=== PATIENT | female | born 1990 | race Caucasian/White ===

== ENCOUNTER → 2018-02-18 | Outpatient (CLI) | payer OTHER ==
--- NOTE | 2018-02-18 08:55 | RAD ---
CT HEAD INDICATION: Headache COMPARISON: None Available. TECHNIQUE: 5 mm contiguous axial images were obtained from the skull base to the vertex. Exposure: One or more of the following individualized dose reduction techniques were utilized for this examination: 1. Automated exposure control 2. Adjustment of the mA and/or kV according to patient size 3. Use of iterative reconstruction technique FINDINGS: No abnormal attenuation within the brain parenchyma. No evidence of acute intracranial hemorrhage. No extra-axial fluid collections. No mass effect or midline shift. Ventricular size is appropriate. Basal cisterns are patent. No fractures identified.Gomez-white differentiation is preserved.Globes and orbits are within normal limits. Partially visualized small mucous retention cyst or polyp in the right maxillary sinus. IMPRESSION: No acute intracranial findings. Electronically signed by: Darren Navarro MD (02/18/2018 8:51 AM) [id number]
== END | disposition home or self-care (01) ==
LOC: CT 08:12
PROVIDERS: ATTEND Nurse Practitioner Adult Health
DX: G43.909 Migraine, unspecified, not intractable, without status migrainosus (principal)
CPT/HCPCS: 70450

== ENCOUNTER 2018-04-27 21:47 | Emergency (ER) | payer OTHER ==
[~2018-04-27] VITALS: Ht 170.2 cm; Wt 184.2 kg
[2018-04-27 22:05] VITALS: BP 149/101
[2018-04-27] MEDS ORDERED: IBUP200T44 PO (22:25)
[2018-04-27] MEDS ORDERED: AMOX500C PO (22:25)
[2018-04-27] MEDS ORDERED: CETI10TA22 PO (22:25)
--- NOTE | 2018-04-27 22:26 | ED.ADGEN ---
Past History Past Medical History Otitis media Past Surgical History: No Surgical History Smoking: Non-smoker Adult General Chief Complaint Chief Complaint Right ear pain HPI HPI Patient has a past history of ear infections. She noted right earache 3 days ago that has gotten progressively worse. She's been taking Motrin with some relief. She notes no fevers or drainage. She doesn't swim. She's never seen an ENT doctor. Review of Systems Review of Systems Constitutional: Denies fever or chills Eyes: Denies change in visual acuity, redness, or eye pain HENT: Denies nasal congestion or sore throat, with right ear pain Respiratory: Denies cough or shortness of breath Cardiovascular: No additional information not addressed in HPI GI: Denies abdominal pain, nausea, vomiting, bloody stools or diarrhea : Denies dysuria or hematuria Musculoskeletal: Denies back pain or joint pain Integument: Denies rash or skin lesions Neurologic: Denies headache, focal weakness or sensory changes Endocrine: Denies polyuria or polydipsia All other systems were reviewed and found to be within normal limits, except as documented in this note. Allergies Allergies Allergies Coded Allergies Type Severity Reaction Last Updated Verified No Known Drug Allergies 04/27/18 No Physical Exam Physical Exam Constitutional: Well developed, well nourished, no acute distress, non-toxic appearance. Morbidly obese HENT: Normocephalic, atraumatic, bilateral external ears normal, oropharynx moist, no oral exudates, nose normal. Right ear with erythema, bulging and loss of normal landmarks Eyes: PERRLA, EOMI, conjunctiva normal, no discharge. Neck: Normal range of motion, no tenderness, supple, no stridor. Cardiovascular:Heart rate regular rhythm, no murmur Lungs & Thorax: Bilateral breath sounds clear to auscultation Abdomen: Bowel sounds normal, soft, no tenderness, no masses, no pulsatile masses. Skin: Warm, dry, no erythema, no rash. Back: No tenderness, no CVA tenderness. Extremities: No tenderness, no cyanosis, no clubbing, ROM intact, no edema. Neurologic: Alert and oriented X 3, normal motor function, normal sensory function, no focal deficits noted. Psychologic: Affect normal, judgement normal, mood normal. Current Patient Data Vital Signs Vital Signs Date Time Temp Pulse Resp B/P (MAP) Pulse Ox O2 Delivery O2 Flow Rate FiO2 8/28/18 22:05 97.9 87 16 98 Room Air EKG EKG [] Radiology/Procedures Radiology/Procedures [] Course & Med Decision Making Course & Med Decision Making Emergency Department Course Patent presents with right ear pain DDx- Right OM, R otitis externa, pharyngitis The patient was stable in the ED. Right ear exam notes ROM. Patient will be given prescriptions for Amoxicillin, Motrin and Zyrtec with ENT follow-up. Final Impression Final Impression Clinical Impression Right Otitis Media Dragon Disclaimer Dragon Disclaimer This electronic medical record was generated, in whole or in part, using a voice recognition dictation system. Departure Departure: Impression: Primary Impression: Right otitis media with effusion Disposition: HOME, SELF-CARE Condition: STABLE Referrals: CHELI COLON MD Follow-up tomorrow for further evaluation Patient Instructions: Otitis Media, Adult, [id number] Additional Instructions: If he develop worse pain, drainage, fevers, vomiting return to the emergency department immediately Scripts Cetirizine Hcl (ZYRTEC) 10 Mg Tablet 1 TAB PO DAILY, #20 TAB 0 Refills Prov: KARRIE AUSTIN MD 04/27/18 Ibuprofen (MOTRIN IB) 200 Mg Tablet 600 MG PO TIDWMEALHC for 3 Days, #27 MG Prov: KARRIE AUSTIN MD 04/27/18 Amoxicillin (AMOXICILLIN) 500 Mg Capsule 1 CAP PO TID, #30 CAP Prov: KARRIE AUSTIN MD 04/27/18 KARRIE AUSTIN MD Apr 27, 2018 22:26
== END 2018-04-27 22:45 | disposition home or self-care (01) ==
LOC: ER 21:47
DX: H65.91 Unspecified nonsuppurative otitis media, right ear (principal)
CPT/HCPCS: 99283

== ENCOUNTER 2018-05-20 19:19 | Emergency (ER) | payer OTHER ==
[~2018-05-20] VITALS: Ht 170.2 cm; Wt 182.3 kg
[~2018-05-20 19:19] MED LIST: AMOX500C PO; CETI10TA22 PO; IBUP200T44 PO
[2018-05-20 19:24] VITALS: BP 154/92
--- NOTE | 2018-05-21 02:45 | ED.ADGEN ---
Past History Past Medical History: Anxiety, Bipolar Past Surgical History: Smoking: Non-smoker Alcohol Use: None Drug Use: None Adult General Chief Complaint Chief Complaint Left ear fullness HPI HPI Patient is a 28-year-old female presents with nasal congestion rhinorrhea, bilateral ear pain with left ear fullness. No fever, loss of hearing, or tenderness. No other acute symptoms or complaints[] Review of Systems Review of Systems Review symptoms as per history of present illness. All other review symptoms are negative All other systems were reviewed and found to be within normal limits, except as documented in this note. Allergies Allergies Allergies Coded Allergies Type Severity Reaction Last Updated Verified No Known Drug Allergies 04/27/18 No Physical Exam Physical Exam Constitutional: Well developed, well nourished, no acute distress, non-toxic appearance. [] HENT: Normocephalic, atraumatic, bilateral external ears normal, L TM bulging with mild erythema, no air-fluid levels, blisters, perforation, nose normal. [] Eyes: PERRLA, EOMI, conjunctiva normal. [] Neck: Normal range of motion. [] Cardiovascular:Heart rate regular rhythm, no murmur [] Lungs & Thorax: Bilateral breath sounds clear to auscultation [] Abdomen: Bowel sounds normal, soft, no tenderness, no masses, no pulsatile masses. [] Skin: Warm, dry, no erythema, no rash. [] Back: No tenderness, no CVA tenderness. [] Extremities: No tenderness, no cyanosis, no clubbing, ROM intact, no edema. [] Neurologic: Alert and oriented X 3, normal motor function, normal sensory function, no focal deficits noted. [] Psychologic: Affect normal, judgement normal, mood normal. [] Current Patient Data Vital Signs Vital Signs Date Time Temp Pulse Resp B/P (MAP) Pulse Ox O2 Delivery O2 Flow Rate FiO2 05/20/18 19:24 97.8 102 18 98 Room Air EKG EKG [] Radiology/Procedures Radiology/Procedures [] Course & Med Decision Making Course & Med Decision Making Pertinent Labs and Imaging studies reviewed. (See chart for details) [] Final Impression Final Impression [1. Left otalgia] Dragon Disclaimer Dragon Disclaimer This electronic medical record was generated, in whole or in part, using a voice recognition dictation system. LAURA ANNE DO May 21, 2018 02:45
== END 2018-05-20 19:42 | disposition home or self-care (01) ==
LOC: ER 19:19
DX: H92.03 Otalgia, bilateral (principal); R09.81 Nasal congestion
CPT/HCPCS: 99281

== ENCOUNTER → 2018-05-24 | Outpatient (CLI) | payer OTHER ==
[2018-05-20 19:24] VITALS: BP 154/92
--- NOTE | 2018-05-24 16:42 | RAD ---
Early OB ultrasound History: Pelvic pain and bleeding. No correlative beta hCG levels available at time of dictation. Comparison: None. Technique: Transabdominal imaging was performed for initial evaluation of the pelvis. Endovaginal imaging was performed to evaluate optimally the lower uterine segment and to increase sensitivity for detection of intrauterine . Findings: Transabdominal imaging: Uterus measures 10.1 cm in length. Endometrial thickness is 6 mm. No definite intrauterine is identified. Ovaries are not well seen. Endovaginal imaging: Uterus measures 9.8 cm in length. Endometrial thickness is 11 mm. No intrauterine is identified. Ovaries are not visualized. No convincing adnexal masses are seen. Impression: 1. No intrauterine is identified. No adnexal masses are seen. 2. Evaluation is limited secondary to lack of correlative beta hCG levels at time of dictation. Assuming positive test, most likely etiology is exceedingly early intrauterine . Although there is no positive ultrasound evidence of such, ectopic cannot be excluded. Recommend serial beta hCG levels and pelvic ultrasound as clinically indicated. Electronically signed by: Faustino Desouza MD (05/24/2018 4:39 PM) [place] [id number]
== END | disposition home or self-care (01) ==
LOC: US 15:41
PROVIDERS: ATTEND Physician Assistant
DX: Z32.02 Encounter for pregnancy test, result negative (principal); R58 Hemorrhage, not elsewhere classified; G43.909 Migraine, unspecified, not intractable, without status migrainosus
CPT/HCPCS: 76801; 76817

== ENCOUNTER 2018-10-04 10:46 | Emergency (ER) | payer OTHER ==
[~2018-10-04] VITALS: Ht 170.2 cm; Wt 191.0 kg
[2018-10-04] MEDS ORDERED: IV NORMAL SALINE 1,000ML 1,000 ML IV ONE (11:30)
--- NOTE | 2018-10-04 11:30 | PHYS DOC ---
Past History Past Medical History: No Pertinent History Past Surgical History: Smoking: Non-smoker Alcohol Use: None Drug Use: None Adult General Chief Complaint Chief Complaint: VAGINAL BLEEDING HPI HPI 28-year-old female presents with vaginal bleeding for the last few days. The patient believes that she is about 7-8 weeks . She is with 2 previous spontaneous abortions. Her last miscarriage was in May 2018. The patient has had heavier spotting which she defines as up to 1 menstral pad per hour for the last 3 days. She states the bleeding has slowed today compared to yesterday. [facility] and they recommended she come to the ED as they were unable to get her into an OB today. She denies fever or chills. She denies dysuria or urinary frequency. She has not been feeling ill. Review of Systems Review of Systems Constitutional: Denies fever or chills [] Eyes: Denies change in visual acuity, redness, or eye pain [] HENT: Denies nasal congestion or sore throat [] Respiratory: Denies cough or shortness of breath [] Cardiovascular: No additional information not addressed in HPI [] GI: Denies abdominal pain, nausea, vomiting, bloody stools or diarrhea [] : vaginal bleeding [] Musculoskeletal: Denies back pain or joint pain [] Integument: Denies rash or skin lesions [] Neurologic: Denies headache, focal weakness or sensory changes [] Endocrine: Denies polyuria or polydipsia [] All other systems were reviewed and found to be within normal limits, except as documented in this note. Current Medications Current Medications Current Medications Medications (Trade) Dose Ordered Sig/Paulina Start Time Stop Time Status Last Admin Dose Admin Sodium Chloride 1,000 ml @ 1,000 mls/hr 1X ONCE 10/04/18 11:30 10/04/18 12:29 Allergies Allergies Allergies Coded Allergies Type Severity Reaction Last Updated Verified No Known Drug Allergies 04/27/18 No Physical Exam Physical Exam Constitutional: Well developed, morbidly obese, well nourished, no acute distress, non-toxic appearance. [] HENT: Normocephalic, atraumatic, bilateral external ears normal, oropharynx moist, no oral exudates, nose normal. [] Eyes: PERRLA, EOMI, conjunctiva normal, no discharge. [] Neck: Normal range of motion, no tenderness, supple, no stridor. [] Cardiovascular:Heart rate regular rhythm, no murmur [] Lungs & Thorax: Bilateral breath sounds clear to auscultation [] Abdomen: Bowel sounds normal, soft, no tenderness, no masses, no pulsatile masses. [] Skin: Warm, dry, no erythema, no rash. [] Back: No tenderness, no CVA tenderness. [] Extremities: No tenderness, no cyanosis, no clubbing, ROM intact, no edema. [] Neurologic: Alert and oriented X 3, normal motor function, normal sensory function, no focal deficits noted. [] Psychologic: Affect normal, judgement normal, mood normal. [] Current Patient Data Vital Signs Vital Signs Date Time Temp Pulse Resp B/P (MAP) Pulse Ox O2 Delivery O2 Flow Rate FiO2 10/04/18 11:08 99.0 88 18 98 Room Air EKG EKG [] Radiology/Procedures Radiology/Procedures [] Impressions: Indication: Vaginal bleeding in TECHNIQUE: Ultrasound OB greater than 14 weeks. COMPARISON: 05/24/2018 FINDINGS:the uterus is anteverted and measures 11.0 x 6.3 x 6.3 cm (longitudinal, AP, transverse). Cervix within normal limits. Single intrauterine gestation sac is seen with estimated gestation age of 6 weeks 1 day. Yolk sac is seen. 1.2 x 0.5 x 1.7 cm subchorionic bleed. No pole seen. No free pelvic fluid. Bilateral ovaries are not visualized due to overlying bowel gas. IMPRESSION: IMPRESSION: 1. Single intrauterine gestation sac corresponding to gestation age of 6 weeks 1 day without visualization of pole. This may be secondary to early . Follow-up ultrasound and correlation with beta CT recommended. 2. Small subchorionic bleed as described above. Electronically signed by: Jaswant Heredia DO (10/04/2018 12:36 PM) [id number] DICTATED AND SIGNED BY: JASWANT HEREDIA DO DATE: 10/04/18 1232 CC: LAURA GARCIA DO; PCP,NO Course & Med Decision Making Course & Med Decision Making Pertinent Labs and Imaging studies reviewed. (See chart for details) Patient's labs are unremarkable. Her urinalysis is negative for infection. Ultrasound shows 1 intrauterine gestational sac. No pole can be visualized this time. Her beta hCG is 9291. There was also a small subchorionic hemorrhage. I advised patient to follow-up in 48 hours for repeat beta hCG. She is stable for discharge at this time. [] Dragon Disclaimer Dragon Disclaimer This electronic medical record was generated, in whole or in part, using a voice recognition dictation system. Departure Departure: Impression: Primary Impression: Vaginal bleeding before 22 weeks gestation Additional Impressions: Subchorionic bleed Disposition: HOME, SELF-CARE Condition: STABLE Referrals: PCP,NO (PCP) Patient Instructions: Vaginal Bleeding During , First Trimester Problem Qualifiers Additional Impressions: Subchorionic bleed Fetus number: single or unspecified fetus Trimester: first trimester Qualified Codes: O41.8X10 - Other specified disorders of amniotic fluid and membranes, first trimester, not applicable or unspecified; O46.8X1 - Other antepartum hemorrhage, first trimester Weeks of gestation: less than 8 weeks Qualified Codes: Z3A.01 - Less than 8 weeks gestation of LAURA GARCIA DO Oct 04, 2018 11:30
[2018-10-04 12:06] LABS: BASO # 0.1 x10^3/uL (0.0-0.2); BASO % 1 % (0-3); EOS # 0.2 x10^3/uL (0.0-0.7); EOS % 2 % (0-3); HEMATOCRIT 36.8 % (36.0-47.0); HEMOGLOBIN 12.1 g/dL (12.0-15.5); LYMPH # 2.1 x10^3/uL (1.0-4.8); LYMPH % 22 % (24-48); MEAN CORPUSCULAR HEMOGLOBIN 26 pg (25-35); MEAN CORPUSCULAR HGB CONC 33 g/dL (31-37); MEAN CORPUSCULAR VOLUME 79 fL (79-100); MONO # 0.5 x10^3/uL (0.0-1.1); MONO % 6 % (0-9); NEUT # 6.7 x10^3uL (1.8-7.7); NEUT % 70 % (31-73); PLATELET COUNT 234 x10^3/uL (140-400); RED BLOOD COUNT 4.64 x10^6/uL (3.50-5.40); RED CELL DISTRIBUTION WIDTH 16.8 % (11.5-14.5); WHITE BLOOD COUNT 9.5 x10^3/uL (4.0-11.0)
[2018-10-04 12:20] LABS: ALBUMIN/GLOBULIN RATIO 0.7 (1.0-1.7); CALCIUM 8.9 mg/dL (8.5-10.1); CREATININE 0.7 mg/dL (0.6-1.0); GFR 101.1; TOTAL BILIRUBIN 0.3 mg/dL (0.2-1.0); TOTAL PROTEIN 7.2 g/dL (6.4-8.2)
[2018-10-04 12:32] LABS: BACTERIA,URINE FEW /HPF (0-FEW); BILIRUBIN,URINE NEG (NEG); CLARITY,URINE HAZY; COLOR,URINE YELLOW; GLUCOSE,URINE NEG (NEG); NITRITE,URINE NEG (NEG); RBC,URINE 0 /HPF (0-2); SQUAMOUS EPITHELIAL CELL,UR MOD /LPF; UROBILINOGEN,URINE 0.2 mg/dL (0.2 mg/dL); WBC,URINE OCC /HPF (0-4)
--- NOTE | 2018-10-04 12:41 | RAD ---
Indication: Vaginal bleeding in TECHNIQUE: Ultrasound OB greater than 14 weeks. COMPARISON: 05/24/2018 FINDINGS:the uterus is anteverted and measures 11.0 x 6.3 x 6.3 cm (longitudinal, AP, transverse). Cervix within normal limits. Single intrauterine gestation sac is seen with estimated gestation age of 6 weeks 1 day. Yolk sac is seen. 1.2 x 0.5 x 1.7 cm subchorionic bleed. No pole seen. No free pelvic fluid. Bilateral ovaries are not visualized due to overlying bowel gas. IMPRESSION: IMPRESSION: 1. Single intrauterine gestation sac corresponding to gestation age of 6 weeks 1 day without visualization of pole. This may be secondary to early . Follow-up ultrasound and correlation with beta CT recommended. 2. Small subchorionic bleed as described above. Electronically signed by: Jaswant Preston DO (10/04/2018 12:36 PM) [id number]
[2018-10-04 15:28] VITALS: BP 160/97
== END 2018-10-04 13:20 | disposition home or self-care (01) ==
LOC: ER 10:46
DX: O46.91 Antepartum hemorrhage, unspecified, first trimester (principal); O41.8X10 Other specified disorders of amniotic fluid and membranes, first trimester, not applicable or unspecified; O46.8X1 Other antepartum hemorrhage, first trimester; Z3A.01 Less than 8 weeks gestation of pregnancy
CPT/HCPCS: 36415; 76805; 76817; 80053; 81001; 84702; 85025; 99284-25; J7030

== ENCOUNTER 2019-08-23 15:20 | Emergency (ER) | payer OTHER ==
[2019-08-23] MEDS ORDERED: IV NORMAL SALINE 1,000ML 1,000 ML IV SCH (15:32)
--- NOTE | 2019-08-23 15:37 | PHYS DOC ---
Past History Past Medical History: No Pertinent History Past Surgical History: Smoking: Non-smoker Alcohol Use: None Drug Use: None Adult General Chief Complaint Chief Complaint: FLANK PAIN HPI HPI Patient is a 29-year-old female presents with left flank pain since approximately 6:00 this morning. It waxes and wanes. No significant relief with muscle relaxers or prescription strength ibuprofen. No dysuria or hematuria. No change with movement. No previous history of this kind of discomfort. Some nausea without vomiting. No difficulty breathing. No diarrhea. Pain is moderate to severe when it comes on. Mild in between the sharp exacerbations. No worsening of the discomfort during the car ride here.[] Review of Systems Review of Systems Constitutional: Denies fever or chills [] Eyes: Denies change in visual acuity, redness, or eye pain [] HENT: Denies nasal congestion or sore throat [] Respiratory: Denies cough or shortness of breath [] Cardiovascular: No chest pain or palpitations[] GI: See history of present illness[] : Denies dysuria or hematuria, see history of present illness [] Musculoskeletal: Denies back pain or joint pain [] Integument: Denies rash or skin lesions [] Neurologic: Denies headache, focal weakness or sensory changes [] Endocrine: Denies polyuria or polydipsia [] All other systems were reviewed and found to be within normal limits, except as documented in this note. Allergies Allergies Allergies Coded Allergies Type Severity Reaction Last Updated Verified No Known Drug Allergies 04/27/18 No Physical Exam Physical Exam Constitutional: Well developed, well nourished, no acute distress, non-toxic appearance. [] HENT: Normocephalic, atraumatic, bilateral external ears normal, oropharynx moist, no oral exudates, nose normal. [] Eyes: PERRLA, EOMI, conjunctiva normal, no discharge. [] Neck: Normal range of motion, no tenderness, supple, no stridor. [] Cardiovascular:Heart rate regular rhythm, no murmur [] Lungs & Thorax: Bilateral breath sounds clear to auscultation [] Abdomen: Bowel sounds normal, soft, no tenderness, no masses, no pulsatile masses. [] Skin: Warm, dry, no erythema, no rash. [] Back: No tenderness, mild left-sided CVA tenderness. No midline tenderness.. [] Extremities: No tenderness, no cyanosis, no clubbing, ROM intact, no edema. [] Neurologic: Alert and oriented X 3, normal motor function, normal sensory f unction, no focal deficits noted. [] Psychologic: Affect normal, judgement normal, mood normal. [] Current Patient Data Lab Results Laboratory Tests Test 08/23/19 15:47 08/23/19 16:11 White Blood Count 9.4 x10^3/uL Red Blood Count 4.70 x10^6/uL Hemoglobin 11.5 g/dL Hematocrit 36.3 % Mean Corpuscular Volume 77 fL Mean Corpuscular Hemoglobin 25 pg Mean Corpuscular Hemoglobin Concent 32 g/dL Red Cell Distribution Width 17.5 % Platelet Count 266 x10^3/uL Neutrophils (%) (Auto) 62 % Lymphocytes (%) (Auto) 28 % Monocytes (%) (Auto) 5 % Eosinophils (%) (Auto) 4 % Basophils (%) (Auto) 1 % Neutrophils # (Auto) 5.9 x10^3uL Lymphocytes # (Auto) 2.6 x10^3/uL Monocytes # (Auto) 0.5 x10^3/uL Eosinophils # (Auto) 0.4 x10^3/uL Basophils # (Auto) 0.1 x10^3/uL Sodium Level 140 mmol/L Potassium Level 4.1 mmol/L Chloride Level 107 mmol/L Carbon Dioxide Level 26 mmol/L Anion Gap 7 Blood Urea Nitrogen 14 mg/dL Creatinine 0.8 mg/dL Estimated GFR (Cockcroft-Gault) 86.0 BUN/Creatinine Ratio 18 Glucose Level 108 mg/dL Calcium Level 8.7 mg/dL Total Bilirubin 0.2 mg/dL Aspartate Amino Transf (AST/SGOT) 13 U/L Alanine Aminotransferase (ALT/SGPT) 24 U/L Alkaline Phosphatase 98 U/L Total Protein 6.8 g/dL Albumin 3.1 g/dL Albumin/Globulin Ratio 0.8 Lipase 77 U/L Serum Test, Qualitative Negative Urine Collection Type Unknown Urine Color Yellow Urine Clarity Hazy Urine pH 5.5 Urine Specific [place] >=1.030 Urine Protein Neg Urine Glucose (UA) Neg mg/dL Urine Ketones (Stick) Neg mg/dL Urine Blood Neg Urine Nitrite Neg Urine Bilirubin Neg Urine Urobilinogen Dipstick 0.2 mg/dL Urine Leukocyte Esterase Neg Urine RBC 0 /HPF Urine WBC Rare /HPF Urine Squamous Epithelial Cells Many /LPF Urine Bacteria Mod /HPF Current Medications Medications (Trade) Dose Ordered Sig/Paulina Route PRN Reason Start Time Stop Time Status Last Admin Dose Admin Morphine Sulfate (Morphine 2mg Syringe) 2 mg PRN Q15MIN PRN IV/SQ PAIN GREATER THAN 3/10 08/23/19 15:45 08/24/19 15:44 08/23/19 15:58 Sodium Chloride 1,000 ml @ 1,000 mls/hr Q1H IV 08/23/19 15:32 08/23/19 16:31 DC 08/23/19 15:32 Ondansetron HCl (Zofran) 4 mg 1X ONCE IVP 08/23/19 15:45 08/23/19 15:49 DC 08/23/19 15:45 Ketorolac Tromethamine (Toradol 30mg Vial) 30 mg 1X ONCE IVP 08/23/19 15:45 08/23/19 15:49 DC 08/23/19 15:45 EKG EKG [] Radiology/Procedures Radiology/Procedures PROCEDURE: CT ABDOMEN PELVIS WO CONTRAST Examination: CT ABDOMEN PELVIS WO CONTRAST History: Left flank pain, nausea Comparison/Correlation: None Findings: Axial images of the abdomen and pelvis were obtained without contrast. Sagittal and coronal reformatted images were provided. Hepatomegaly is present with liver length of 26 cm. No biliary dilatation. Gallbladder is unremarkable. Splenomegaly is present with longitudinal length of 16.1 cm. Pancreas, adrenal glands, and kidneys are unremarkable. Uterus is unremarkable. No enlarged abdominal or pelvic lymph nodes. Diverticulosis of the colon is present. No inflammatory change about the cecum. Bony structures are unremarkable for the patient's age. Impression: Hepatosplenomegaly. Diverticulosis.[] Course & Med Decision Making Course & Med Decision Making Pertinent Labs and Imaging studies reviewed. (See chart for details) ED course: Patient arrived, was placed in bed, and tolerated exam well. IV access was established and she was given pain medicines. She was transferred to and from radiology with any complications. After return of laboratory and i maging findings, these were discussed with the patient who voiced understanding. All questions were answered. She was discharged in improved condition. Medical decision making: There is no evidence of obstruction, perforation, pyelonephritis, kidney stone, nor other acute surgical process. There are diverticuli present, no evidence of diverticulitis. No evidence of intractable pain.[] Dragon Disclaimer Dragon Disclaimer This electronic medical record was generated, in whole or in part, using a voice recognition dictation system. Departure Departure: Impression: Primary Impression: Acute left flank pain Disposition: HOME, SELF-CARE Condition: IMPROVED Referrals: PCPRITCHIE (PCP) Patient Instructions: Flank Pain Additional Instructions: Drink plenty of fluids. Follow-up with your regular doctor in 2 days. If you do not have regular doctor list of local clinics will be provided for you. Return to the ER if unable to tolerate liquids, blood in stool, emesis, or urine, or any other concerns. Scripts Tramadol Hcl (TRAMADOL HCL) 50 Mg Tablet 50 MG PO PRN Q6HRS PRN for PAIN, #20 TAB Prov: PARAM CALLAHAN DO 08/23/19 Metoclopramide Hcl (REGLAN) 10 Mg Tablet 10 MG PO QID for nausea and vomiting, #30 TAB Prov: PARAM CALLAHAN DO 08/23/19 Orphenadrine Citrate (ORPHENADRINE CITRATE) 100 Mg Tablet.er 100 MG PO BID for BACK PAIN, #20 TAB.SR Prov: PARAM CALLAHAN DO 08/23/19 Meloxicam (MELOXICAM) 7.5 Mg Tablet 7.5 MG PO DAILY for PAIN, #20 TAB Prov: PARAM CALLAHAN DO 08/23/19 PARAM CALLAHAN DO Aug 23, 2019 15:37
[2019-08-23] MEDS ORDERED: KETOROLAC 30 MG/ML VIAL. IVP ONE (15:45)
[2019-08-23] MEDS ORDERED: MORPHINE SULFATE 2 MG/ML DISP.SYRIN. IV/SQ PRN (15:45)
[2019-08-23] MEDS ORDERED: ONDANSETRON PF 4 MG/2 ML VIAL. IVP ONE (15:45)
[2019-08-23 16:07] LABS: BASO # 0.1 x10^3/uL (0.0-0.2); BASO % 1 % (0-3); EOS # 0.4 x10^3/uL (0.0-0.7); EOS % 4 % (0-3); HEMATOCRIT 36.3 % (36.0-47.0); HEMOGLOBIN 11.5 g/dL (12.0-15.5); LYMPH # 2.6 x10^3/uL (1.0-4.8); LYMPH % 28 % (24-48); MEAN CORPUSCULAR HEMOGLOBIN 25 pg (25-35); MEAN CORPUSCULAR HGB CONC 32 g/dL (31-37); MEAN CORPUSCULAR VOLUME 77 fL (79-100); MONO # 0.5 x10^3/uL (0.0-1.1); MONO % 5 % (0-9); NEUT # 5.9 x10^3uL (1.8-7.7); NEUT % 62 % (31-73); PLATELET COUNT 266 x10^3/uL (140-400); RED CELL DISTRIBUTION WIDTH 17.5 % (11.5-14.5); WHITE BLOOD COUNT 9.4 x10^3/uL (4.0-11.0)
[2019-08-23 16:08] LABS: CALCIUM 8.7 mg/dL (8.5-10.1); CREATININE 0.8 mg/dL (0.6-1.0); POTASSIUM 4.1 mmol/L (3.5-5.1)
[2019-08-23 16:14] LABS: ALBUMIN 3.1 g/dL (3.4-5.0); ALBUMIN/GLOBULIN RATIO 0.8 (1.0-1.7); TOTAL BILIRUBIN 0.2 mg/dL (0.2-1.0); TOTAL PROTEIN 6.8 g/dL (6.4-8.2)
[2019-08-23 16:30] LABS: PREG TEST PT QUAL NEGATIVE (NEG)
--- NOTE | 2019-08-23 16:55 | RAD ---
Examination: CT ABDOMEN PELVIS WO CONTRAST History: Left flank pain, nausea Comparison/Correlation: None Findings: Axial images of the abdomen and pelvis were obtained without contrast. Sagittal and coronal reformatted images were provided. Hepatomegaly is present with liver length of 26 cm. No biliary dilatation. Gallbladder is unremarkable. Splenomegaly is present with longitudinal length of 16.1 cm. Pancreas, adrenal glands, and kidneys are unremarkable. Uterus is unremarkable. No enlarged abdominal or pelvic lymph nodes. Diverticulosis of the colon is present. No inflammatory change about the cecum. Bony structures are unremarkable for the patient's age. Impression: Hepatosplenomegaly. Diverticulosis. PQRS Compliance Statement: One or more of the following individualized dose reduction techniques were utilized for this examination: 1. Automated exposure control 2. Adjustment of the mA and/or kV according to patient size 3. Use of iterative reconstruction technique Electronically signed by: Brant Proctor MD (08/23/2019 4:52 PM) [facility]
[2019-08-23 16:56] VITALS: BP 142/68
[2019-08-23 17:07] LABS: BACTERIA,URINE MOD /HPF (0-FEW); BILIRUBIN,URINE NEG (NEG); CLARITY,URINE HAZY; COLOR,URINE YELLOW; GLUCOSE,URINE NEG (NEG); NITRITE,URINE NEG (NEG); RBC,URINE 0 /HPF (0-2); SQUAMOUS EPITHELIAL CELL,UR MANY /LPF; UROBILINOGEN,URINE 0.2 mg/dL (0.2 mg/dL); WBC,URINE RARE /HPF (0-4)
[2019-08-23] MEDS ORDERED: ORPH-16 PO (17:16)
[2019-08-23] MEDS ORDERED: TRAM50TA PO (17:16)
[2019-08-23] MEDS ORDERED: MELO7.5T29 PO (17:16)
[2019-08-23] MEDS ORDERED: METO10TA81 PO (17:16)
== END 2019-08-23 17:30 | disposition home or self-care (01) ==
LOC: ER 15:20
DX: R10.9 Unspecified abdominal pain (principal); R16.2 Hepatomegaly with splenomegaly, not elsewhere classified; K57.30 Diverticulosis of large intestine without perforation or abscess without bleeding; Z98.890 Other specified postprocedural states
CPT/HCPCS: 36415; 74176; 80053; 81001; 83690; 84703; 85025; 87086; 96374; 96375; 99285; J1885; J2270; J2405; J7030

== ENCOUNTER 2019-11-15 22:00 | Emergency (ER) | payer OTHER ==
[~2019-11-15] VITALS: Ht 170.2 cm; Wt 200.0 kg
[~2019-11-15 22:00] MED LIST changes: -CETI10TA22 PO; +CETI10TA24 PO; +MELO7.5T29 PO; +METO10TA81 PO; +ORPH-16 PO; +TRAM50TA PO
[2019-11-15 22:07] VITALS: BP 152/97
--- NOTE | 2019-11-15 22:26 | PHYS DOC ---
Past History Past Medical History: Anxiety, Bipolar, Depression Past Surgical History: Smoking: Non-smoker Alcohol Use: None Drug Use: None Adult General Chief Complaint Chief Complaint: FOREIGNBODY EAR'''... I got a q tip stuck in my Lt. ear....".. " I tell my kids not to do what I did...." HPI HPI Patient is a 29 year old female who presents with above hx and complaints of Q- tip stuck in Lt. ear. Patient's states he is currently now causing her considerable pain. Patient denies any significant hearing loss. Patient normally healthy. Review of Systems Review of Systems Constitutional: Denies fever or chills [] Eyes: Denies change in visual acuity, redness, or eye pain [] HENT: Denies nasal congestion or sore throat [. Patient]complains of left ear pain and loss of Q-tip Respiratory: Denies cough or shortness of breath [] Cardiovascular: No additional information not addressed in HPI [] GI: Denies abdominal pain, nausea, vomiting, bloody stools or diarrhea [] : Denies dysuria or hematuria [] Musculoskeletal: Denies back pain or joint pain [] Integument: Denies rash or skin lesions [] Neurologic: Denies headache, focal weakness or sensory changes [] Endocrine: Denies polyuria or polydipsia [] All other systems were reviewed and found to be within normal limits, except as documented in this note. Family History Family History Noncontributory to presentation Current Medications Current Medications See nursing for home medications Allergies Allergies Allergies Coded Allergies Type Severity Reaction Last Updated Verified No Known Drug Allergies 04/27/18 No Physical Exam Physical Exam Constitutional: Well developed, well nourished, no acute distress, non-toxic appearance. [] HENT: Normocephalic, atraumatic, oropharynx moist, no oral exudates, nose normal. []Cotton tip stuck up against TM and excoriated canal on Lt. Eyes: PERRLA, EOMI, conjunctiva normal, no discharge. [] Neck: Normal range of motion, no tenderness, supple, no stridor. [] Cardiovascular:Heart rate regular rhythm, no murmur [] Lungs & Thorax: Bilateral breath sounds clear to auscultation [] Abdomen: Bowel sounds normal, soft, no tenderness, no masses, no pulsatile masses. Obese. Scar. Skin: Warm, dry, no erythema, no rash. [] Back: No tenderness, no CVA tenderness. [] Extremities: No tenderness, no cyanosis, no clubbing, ROM intact, no edema. [] Neurologic: Alert and oriented X 3, normal motor function, normal sensory function, no focal deficits noted. [] Psychologic: Affect anxious, judgement normal, mood normal. [] EKG EKG [] Radiology/Procedures Radiology/Procedures [] Course & Med Decision Making Course & Med Decision Making Pertinent Labs and Imaging studies reviewed. (See chart for details) Procedure note- with use of ear final and forceps was able to remove cotton tip. Patient to use Debrox to cleaning ears. Patient avoid using Q-tips. Patient follow-up primary care. Return if any concerns. Impression: 1. Foreign body left ear canal [] Dragon Disclaimer Dragon Disclaimer This electronic medical record was generated, in whole or in part, using a voice recognition dictation system. Departure Departure: Disposition: 01 HOME/RESIDENCE PRIOR TO ADM Condition: STABLE Referrals: PCP,UNKNOWN (PCP) Dragon Disclaimer This chart was dictated in whole or in part using Voice Recognition software in a busy, high-work load, and often noisy Emergency Department environment. It may contain unintended and wholly unrecognized errors or omissions. NEYMAR MCKEON MD Nov 15, 2019 22:26
== END 2019-11-15 23:28 | disposition home or self-care (01) ==
LOC: ER 22:00
DX: T16.2XXA Foreign body in left ear, initial encounter (principal); X58.XXXA Exposure to other specified factors, initial encounter; Y93.89 Activity, other specified; Y92.89 Other specified places as the place of occurrence of the external cause; Y99.8 Other external cause status
CPT/HCPCS: 69200; 99284

== ENCOUNTER 2020-01-23 13:41 | Emergency (ER) | payer OTHER ==
[~2020-01-23] VITALS: Ht 170.2 cm; Wt 200.0 kg
[2020-01-23] MEDS ORDERED: IV NORMAL SALINE 1,000ML 1,000 ML IV ONE (14:00)
--- NOTE | 2020-01-23 14:12 | PHYS DOC ---
Past History Past Medical History: Anxiety, Bipolar, Depression Past Surgical History: Smoking: Non-smoker Alcohol Use: None Drug Use: None General Adult EDM: Chief Complaint: VAGINAL BLEEDING HPI: HPI: 29-year-old female presents with 16-day history of increased and prolonged vaginal bleeding. Reports is currently passing "large clots ". Patient denies prior history of similar bleeding. Denies use of blood thinners. Denies dizziness or lightheadedness. Patient reports today now with some lower pelvic abdominal cramping pain. Denies . Denies fever or chills. Reports called her PCP who instructed patient to present to the ER for further evaluation. Review of Systems: Review of Systems: Constitutional: Denies fever or chills Eyes: Denies redness or eye pain HENT: Denies nasal congestion or sore throat Respiratory: Denies cough or shortness of breath Cardiovascular: Denies chest pain or palpitations GI: Denies abdominal pain, nausea, or vomiting /MACHINERY CLEANER: Denies dysuria or hematuria; reports pelvic pain and abnormal vaginal bleeding Musculoskeletal: Denies back pain or joint pain Integument: Denies rash or skin lesions Neurologic: Denies headache, focal weakness or sensory changes Complete systems were reviewed and found to be within normal limits, except as documented in this note. Current Medications: Current Meds: Current Medications Medications (Trade) Dose Ordered Sig/Paulina Start Time Stop Time Status Last Admin Dose Admin Ketorolac Tromethamine (Toradol 15mg Vial) 15 mg 1X ONCE 01/23/20 14:15 01/23/20 14:16 Sodium Chloride 1,000 ml @ 1,000 mls/hr 1X ONCE 01/23/20 14:00 01/23/20 14:59 Allergies: Allergies: Allergies Coded Allergies Type Severity Reaction Last Updated Verified No Known Drug Allergies 01/23/20 No Physical Exam: PE: Constitutional: Well developed, morbidly obese, no acute distress, non-toxic appearance HENT: Normocephalic, atraumatic Eyes: Conjunctiva normal, no discharge Neck: Normal range of motion, supple Lungs & Thorax: No respiratory distress, equal chest rise and fall Abdomen: Soft, obese, no tenderness, no guarding/rebound tenderness/distention Pelvic exam: Student Development Dean RN, external genitalia normal, blood clots noted in vaginal vault, no CMT, no adnexal tenderness Skin: Warm, dry, no erythema, no rash Neurologic: Alert and oriented X 3, no focal deficits noted Psychologic: Affect normal, judgment normal EKG: EKG: [] Radiology/Procedures: Radiology/Procedures: PROCEDURE: TRANSVAGINAL Transvaginal pelvic ultrasound HISTORY: Abnormal vaginal bleeding. FINDINGS: Anteverted appearing uterus measures 10.5 x 5.3 x 5.1 cm. Endometrial thickness is 1.2 cm which is normal. Cervix is unremarkable. The upper uterus including the fundus is obscured by bowel gas shadowing from pelvic bowel loops. Along the anterior wall of the lower uterine segment a echogenic linear focus thickness of 0.8 cm is measured which may be contiguous with the endometrium and may represent a lower uterine section scar. The transition mgr worksheet questions 2 fibroids of the upper uterine fundus obscured by bowel gas shadowing, no masses are annotated or measured on the saved images or are readily apparent. Right ovary measures 3.3 x 2.4 x 2.3 cm, left ovary measures 3.1 x 2.0 x 0.9 cm, there are small ovarian follicles. There is intact bilateral ovarian blood flow, most of the ovaries however are obscured by bowel gas shadowing from pelvic bowel loops. IMPRESSION: No abnormality evident. See above. Electronically signed by: Antony Puente MD (01/23/2020 3:29 PM) [id number] Course & Med Decision Making: Course & Med Decision Making Pertinent Labs and Imaging studies reviewed. (See chart for details) Morbidly obese patient presents with menometrorrhagia x 16 days. Denies use of blood thinners. Denies dizziness or lightheadedness. Labs obtained and posted to chart. H&H stable. Coags within normal limits. Pelvic exam performed. Chlamydia/gonorrhea cultures pending. Patient declined empiric antibiotic therapy. Wet mount positive for BV. Flagyl provided. Pelvic ultrasound without acute process, although there was possibility of fibroids. A copy of US report was provided to patient to give to her MACHINERY CLEANER. Patient stable for discharge with outpatient follow-up with PCP/MACHINERY CLEANER. Discussed findings and plan with patient, who acknowledges understanding and agreement. Romina Disclaimer: Romina Disclaimer: This electronic medical record was generated, in whole or in part, using a voice recognition dictation system. Departure Departure: Impression: Primary Impression: Menometrorrhagia Additional Impression: Bacterial vaginosis Disposition: HOME/RESIDENCE PRIOR TO ADM Condition: STABLE Referrals: [facility]HENG [facility]LMSTEAD SILK OPENER (PCP) Patient Instructions: Bacterial Vaginosis, [id number], Menorrhagia, [id number] Additional Instructions: Increase fluid hydration. Take over the counter Tylenol and/or Ibuprofen for pain or discomfort. Please follow up with PCP and/or MACHINERY CLEANER for further evaluation and treatment. Scripts Metronidazole (FLAGYL) 500 Mg Tablet 1 TAB PO BID for Vaginitis, #14 TAB Prov: VEE HERNANDEZ DO 01/23/20 VEE HERNANDEZ DO January 23, 2020 14:12
[2020-01-23] MEDS ORDERED: KETOROLAC 15 MG/ML VIAL. IVP ONE (14:15)
[2020-01-23 14:51] LABS: BASO # 0.1 x10^3/uL (0.0-0.2); BASO % 1 % (0-3); EOS # 0.3 x10^3/uL (0.0-0.7); EOS % 4 % (0-3); HEMATOCRIT 38.2 % (36.0-47.0); HEMOGLOBIN 12.4 g/dL (12.0-15.5); LYMPH # 2.6 x10^3/uL (1.0-4.8); LYMPH % 30 % (24-48); MEAN CORPUSCULAR HEMOGLOBIN 26 pg (25-35); MEAN CORPUSCULAR HGB CONC 33 g/dL (31-37); MEAN CORPUSCULAR VOLUME 79 fL (79-100); MONO # 0.5 x10^3/uL (0.0-1.1); MONO % 6 % (0-9); NEUT # 5.3 x10^3uL (1.8-7.7); NEUT % 60 % (31-73); PLATELET COUNT 240 x10^3/uL (140-400); RED BLOOD COUNT 4.86 x10^6/uL (3.50-5.40); RED CELL DISTRIBUTION WIDTH 16.9 % (11.5-14.5); WHITE BLOOD COUNT 8.8 x10^3/uL (4.0-11.0)
[2020-01-23 15:16] LABS: BACTERIA,URINE FEW /HPF (0-FEW); BILIRUBIN,URINE NEG (NEG); CLARITY,URINE CLOUDY; COLOR,URINE YELLOW; GLUCOSE,URINE NEG (NEG); NITRITE,URINE NEG (NEG); RBC,URINE >40 /HPF (0-2); SQUAMOUS EPITHELIAL CELL,UR FEW /LPF; UROBILINOGEN,URINE 0.2 mg/dL (0.2 mg/dL); WBC,URINE 0 /HPF (0-4)
--- NOTE | 2020-01-23 15:32 | RAD ---
Transvaginal pelvic ultrasound HISTORY: Abnormal vaginal bleeding. FINDINGS: Anteverted appearing uterus measures 10.5 x 5.3 x 5.1 cm. Endometrial thickness is 1.2 cm which is normal. Cervix is unremarkable. The upper uterus including the fundus is obscured by bowel gas shadowing from pelvic bowel loops. Along the anterior wall of the lower uterine segment a echogenic linear focus thickness of 0.8 cm is measured which may be contiguous with the endometrium and may represent a lower uterine section scar. The wedger and gluer worksheet questions 2 fibroids of the upper uterine fundus obscured by bowel gas shadowing, no masses are annotated or measured on the saved images or are readily apparent. Right ovary measures 3.3 x 2.4 x 2.3 cm, left ovary measures 3.1 x 2.0 x 0.9 cm, there are small ovarian follicles. There is intact bilateral ovarian blood flow, most of the ovaries however are obscured by bowel gas shadowing from pelvic bowel loops. IMPRESSION: No abnormality evident. See above. Electronically signed by: Antony Puente MD (01/23/2020 3:29 PM) [id number]
[2020-01-23] MEDS ORDERED: METR500T PO (16:54)
[2020-01-23] MEDS ORDERED: metroNIDAZOLE 500 MG TABLET PO ONE (17:00)
[2020-01-23 17:01] VITALS: BP 143/106
[2020-01-25 19:07] LABS: CHLAMYDIA PROBE Negative (Negative)
== END 2020-01-23 17:05 | disposition home or self-care (01) ==
LOC: ER 13:41
DX: N92.1 Excessive and frequent menstruation with irregular cycle (principal); N76.0 Acute vaginitis; B96.89 Other specified bacterial agents as the cause of diseases classified elsewhere; E66.01 Morbid (severe) obesity due to excess calories; Z68.44 Body mass index [BMI] 60.0-69.9, adult; Z98.890 Other specified postprocedural states
CPT/HCPCS: 36415; 76830; 81001; 81025; 85025; 85610; 85730; 87491; 87591; 96374; 99284; J1885; Q0111; J7030

== ENCOUNTER 2020-08-09 19:49 | Emergency (ER) | payer OTHER ==
[~2020-08-09] VITALS: Ht 170.2 cm; Wt 200.0 kg
[~2020-08-09 19:49] MED LIST changes: -CETI10TA24 PO; +CETI10TA74 PO; +METR500T PO
[2020-08-09 20:04] VITALS: BP 159/99
[2020-08-09] MEDS: FAMOTIDINE 20 MG/2 ML VIAL IVP ONE (20:25)
[2020-08-09] MEDS: IV NORMAL SALINE 1,000ML 1,000 ML IV ONE (20:25)
[2020-08-09] MEDS: ONDANSETRON PF 4 MG/2 ML VIAL. IVP ONE (20:26)
--- NOTE | 2020-08-09 20:44 | PHYS DOC ---
Past History Past Medical History: Anxiety, Bipolar, Depression, Other Additional Past Medical Histor: obesity (DENISHA PADILLA APRN) Past Surgical History: , Tonsillectomy (DENISHA PADILLA APRN) Smoking: Non-smoker Alcohol Use: Occasionally Drug Use: None (DENISHA PADILLA APRN) Adult General Chief Complaint Chief Complaint: POST-OP PROBLEM HPI HPI Patient is a 30-year-old female patient with history of obesity, depression, bipolar, anxiety, who presents to the ED today complaining of nausea, dizziness, 4 out of 10 abdominal pain, symptoms began this morning. Patient states she had bariatric surgery called duodenal switch at [facility] last Thursday. She states she has tried to call the doctor's office today and spoke to the nurse, the states they will inform the doctor, patient states she is waited all day and the doctor has not returned her call. She states her abdominal pain is not bad, she states it is just a discomfort. She states her worst symptoms are nausea and dizziness. (DENISHA PADILLA APRN) Review of Systems Review of Systems Constitutional: Denies fever or chills [] Eyes: Denies change in visual acuity, redness, or eye pain [] HENT: Denies nasal congestion or sore throat [] Respiratory: Denies cough or shortness of breath [] Cardiovascular: No additional information not addressed in HPI [] GI: Reports abdominal pain, nausea, denies vomiting, denies bloody stools or diarrhea [] : Denies dysuria or hematuria [] Musculoskeletal: Denies back pain or joint pain [] Integument: Denies rash or skin lesions [] Neurologic: Denies headache, focal weakness or sensory changes [] All other systems were reviewed and found to be within normal limits, except as documented in this note. (DENISHA PADILLA APRN) Current Medications Current Medications Current Medications Medications (Trade) Dose Ordered Sig/Paulina Start Time Stop Time Status Last Admin Dose Admin Famotidine (Pepcid Vial) 20 mg 1X ONCE 08/09/20 20:15 08/09/20 20:24 DC 08/09/20 20:25 20 MG Ondansetron HCl (Zofran) 4 mg 1X ONCE 08/09/20 20:15 08/09/20 20:24 DC 08/09/20 20:26 4 MG Sodium Chloride 1,000 ml @ 1,000 mls/hr 1X ONCE 08/09/20 20:15 08/09/20 21:14 08/09/20 20:25 1,000 MLS/HR (DENISHA PADILLA APRN) Allergies Allergies Allergies Coded Allergies Type Severity Reaction Last Updated Verified No Known Drug Allergies 01/23/20 No (DENISHA PADILLA APRN) Physical Exam Physical Exam Constitutional: Well developed, well nourished, no acute distress, non-toxic appearance. [] HENT: Normocephalic, atraumatic, bilateral external ears normal, oropharynx moist, no oral exudates, nose normal. [] Eyes: PERRLA, EOMI, conjunctiva normal, no discharge. [] Neck: Normal range of motion, no tenderness, supple, no stridor. [] Cardiovascular:Heart rate regular rhythm, no murmur [] Lungs & Thorax: Bilateral breath sounds clear to auscultation [] Abdomen: Obese abdomen. Laparoscopic incisions on the abdomen consistent with recent surgery. No signs of infection on the incision sites. Bowel sounds normal, soft, no tenderness, no masses, no pulsatile masses. [] Skin: Warm, dry, no erythema, no rash. [] Back: No tenderness, no CVA tenderness. [] Extremities: No tenderness, no cyanosis, no clubbing, ROM intact, no edema. [] Neurologic: Alert and oriented X 3, normal motor function, normal sensory function, no focal deficits noted. [] Psychologic: Affect normal, judgement normal, mood normal. [] (DENISHA PADILLA APRN) Current Patient Data Vital Signs Vital Signs Date Time Temp Pulse Resp B/P (MAP) Pulse Ox O2 Delivery O2 Flow Rate FiO2 08/09/20 20:04 97.5 116 22 159/99 (119) 96 Room Air (DENISHA PADILLA APRN) EKG EKG [] (DENISHA PADILLA APRN) Radiology/Procedures Radiology/Procedures [] (DENISHA PADILLA APRN) Heart Score Risk Factors: Risk Factors: DM, Current or recent (<one month) smoker, HTN, HLP, family history of CAD, obesity. Risk Scores: Risk Factors: DM, Current or recent (<one month) smoker, HTN, HLP, family history of CAD, obesity. (DENISHA PADILLA APRN) Course & Med Decision Making Course & Med Decision Making Pertinent Labs and Imaging studies reviewed. (See chart for details) This is a 30-year-old female patient presenting to the ED today complaining of nausea, dizziness and slight abdominal pain. She had duodenal switch bariatric surgery on Thursday last week. CBC with a WBC of 13.2, CMP with AST of 38, ALT of 118. Awaiting 2223 Care transferred to (DENISHA PADILLA APRN) Course & Med Decision Making Pt. push fluids. Take Zofran 8 mg up to 4 times a day for active vomiting. Call her surgeon in the morning for earlier follow-up. Stay on a clear fluid diet. Impression: 1. Postop bariatric surgery-Thursday 2. Morbid obesity 3. Dehydration 4. Mild elevation AST and ALT 38/118 (NEYMAR MCKEON MD) Dragon Disclaimer Dragon Disclaimer This electronic medical record was generated, in whole or in part, using a voice recognition dictation system. (DENISHA PADILLA APRN) Departure Departure: Impression: Primary Impression: Nausea Disposition: 01 DC HOME SELF CARE/HOMELESS Condition: STABLE Referrals: KAROLINE THORNTON (PCP) Scripts Ondansetron Hcl (ZOFRAN) 4 Mg Tablet 8 MG PO QIDPRN PRN for NAUSEA/VOMITING, #30 TAB Prov: NEYMAR MCKEON MD 08/10/20 Ondansetron Hcl (ZOFRAN) 4 Mg Tablet 8 MG PO QIDPRN PRN for NAUSEA/VOMITING, #30 TAB Prov: NEYMAR MCKEON MD 08/10/20 Dragon Disclaimer This chart was dictated in whole or in part using Voice Recognition software in a busy, high-work load, and often noisy Emergency Department environment. It may contain unintended and wholly unrecognized errors or omissions. (NEYMAR MCKEON MD) Attending Co-Sign Attending Co-Sign The patient was seen and interviewed as well as examined at the bedside. The chart was reviewed. The case was discussed. Agree with the plan of care. (NEYMAR MCKEON MD) DENISHA PADILLA APRN Aug 09, 2020 20:44 NEYMAR MCKEON MD Aug 10, 2020 07:37
[2020-08-09 20:54] LABS: BASO % 0 % (0-3); EOS # 0.9 x10^3/uL (0.0-0.7); EOS % 7 % (0-3); HEMATOCRIT 43.8 % (36.0-47.0); HEMOGLOBIN 13.9 g/dL (12.0-15.5); LYMPH # 2.5 x10^3/uL (1.0-4.8); LYMPH % 19 % (24-48); MEAN CORPUSCULAR HEMOGLOBIN 26 pg (25-35); MEAN CORPUSCULAR HGB CONC 32 g/dL (31-37); MEAN CORPUSCULAR VOLUME 81 fL (79-100); MONO # 0.8 x10^3/uL (0.0-1.1); MONO % 6 % (0-9); NEUT % 68 % (31-73); PLATELET COUNT 300 x10^3/uL (140-400); RED BLOOD COUNT 5.41 x10^6/uL (3.50-5.40); WHITE BLOOD COUNT 13.2 x10^3/uL (4.0-11.0)
[2020-08-09 21:05] LABS: POTASSIUM 3.7 mmol/L (3.5-5.1)
[2020-08-09 21:11] LABS: ALBUMIN 3.4 g/dL (3.4-5.0); ALBUMIN/GLOBULIN RATIO 0.9 (1.0-1.7); TOTAL BILIRUBIN 0.8 mg/dL (0.2-1.0); TOTAL PROTEIN 7.3 g/dL (6.4-8.2)
[2020-08-09 22:43] LABS: BILIRUBIN,URINE NEG (NEG); CLARITY,URINE CLEAR; COLOR,URINE YELLOW; GLUCOSE,URINE NEG (NEG)
[2020-08-09 22:44] LABS: BACTERIA,URINE 0 /HPF (0-FEW); NITRITE,URINE NEG (NEG); SQUAMOUS EPITHELIAL CELL,UR OCC /LPF; WBC,URINE OCC /HPF (0-4)
[2020-08-10] MEDS ORDERED: ONDA4TAB7 PO ×2 (00:08→00:12)
== END 2020-08-10 00:17 | disposition home or self-care (01) ==
LOC: ER 19:49
DX: G89.18 Other acute postprocedural pain (principal); R10.9 Unspecified abdominal pain; E86.0 Dehydration; E66.01 Morbid (severe) obesity due to excess calories; R79.89 Other specified abnormal findings of blood chemistry; F41.9 Anxiety disorder, unspecified; F31.9 Bipolar disorder, unspecified; Z68.44 Body mass index [BMI] 60.0-69.9, adult
CPT/HCPCS: 36415; 80053; 81001; 83690; 85025; 96361; 96374; 96375; 99284; J2405; J3490; J7030

== ENCOUNTER 2020-11-17 08:44 | Emergency (ER) | payer OTHER ==
[~2020-11-17] VITALS: Ht 170.2 cm; Wt 178.5 kg
[~2020-11-17 08:44] MED LIST changes: +ONDA4TAB7 PO
--- NOTE | 2020-11-17 09:20 | PHYS DOC ---
Past History Past Medical History: Anxiety, Bipolar, Depression, Other Additional Past Medical Histor: obesity Past Surgical History: , Tonsillectomy Smoking: Non-smoker Alcohol Use: Occasionally Drug Use: None Adult General Chief Complaint Chief Complaint: HEADACHE HPI HPI Patient is a 30-year-old female presenting for headache. Onset was first noticed yesterday without any inciting event and/or trauma. She has a history of migraines when she was and states feelings today feels similar in nature. Reports having mild blurred vision and light sensitivity yesterday with subsequent onset of left-sided throbbing pulsatile headache. States she has taken ibuprofen, Benadryl, Compazine and Tylenol at home without significant relief in symptoms. She woke up today with continued left-sided pulsatile pain with some migration to her occiput prompting her to come in for evaluation and management. Denies fever, recent travel or illness, no neck stiffness or history of meningitis, no chest pain, shortness of breath, abdominal pain, neurologic findings. She admits only medication change recently was starting venlafaxine approximately 6 days ago for anxiety Review of Systems Review of Systems Fourteen body systems of review of systems have been reviewed. See HPI for pertinent positives and negative responses, other oscar all other systems are negative, non-pertinent or non-contributory Allergies Allergies Allergies Coded Allergies Type Severity Reaction Last Updated Verified No Known Drug Allergies 01/23/20 No Physical Exam Physical Exam Constitutional: Well developed, well nourished, no acute distress, non-toxic appearance. Appears uncomfortable HENT: Normocephalic, atraumatic, bilateral external ears normal, oropharynx moist, no oral exudates, nose normal. Eyes: PERRLA, EOMI, conjunctiva normal, no discharge. Neck: Normal range of motion, no tenderness, supple, no stridor. No meningeal signs, negative Kernig and Brezinski signs Cardiovascular: Heart rate regular, sinus rhythm, no murmurs rubs or gallops Lungs & Thorax: Bilateral breath sounds clear to auscultation Abdomen: Bowel sounds normal, soft and protuberant, no tenderness, no masses, no pulsatile masses. Nonsurgical abdomen, no peritoneal signs Skin: Warm, dry, no erythema, no rash. Back: No tenderness, no CVA tenderness. Extremities: No tenderness, no cyanosis, no clubbing, ROM intact, no edema. Neurologic: Alert and oriented X 3, cranial nerves II through XII intact, normal motor & sensory function, no focal deficits noted. Psychologic: Affect normal, judgement normal, mood normal. Current Patient Data Vital Signs Vital Signs Date Time Temp Pulse Resp B/P (MAP) Pulse Ox O2 Delivery O2 Flow Rate FiO2 11/17/20 08:44 98.4 90 16 165/75 (105) 98 Room Air EKG EKG [] Radiology/Procedures Radiology/Procedures [] Heart Score C/O Chest Pain: No Risk Factors: Risk Factors: DM, Current or recent (<one month) smoker, HTN, HLP, family history of CAD, obesity. Risk Scores: Risk Factors: DM, Current or recent (<one month) smoker, HTN, HLP, family history of CAD, obesity. Course & Med Decision Making Course & Med Decision Making Patient with mildly elevated blood pressure otherwise hemodynamically stable with history consistent with nonemergent headache. Physical exam grossly nonconcerning. IV access obtained, 1 L normal saline, 15 mg ketorolac, 10 mg Compazine, 25 mg Benadryl, and 10 mg IV dexamethasone administered with significant relief in symptoms. Patient reevaluated numerous times with improvement in symptoms. Discussed little utility in further diagnostic work-up in ER setting. Specifically disclosed risk of meningitis that would require lumbar puncture but she is low risk at this time, joint decision to defer Patient has good access to PCP, can follow-up within upcoming 72 hours for repeat evaluation which I feel is appropriate. Patient to be discharged home with continued supportive care. Strict return precautions discussed with good understanding, all questions and concerns addressed prior to ER departure in improved condition Dragon Disclaimer Dragon Disclaimer This electronic medical record was generated, in whole or in part, using a voice recognition dictation system. Departure Departure: Impression: Primary Impression: Headache Disposition: 01 DC HOME SELF CARE/HOMELESS Condition: IMPROVED Referrals: KAROLINE THORNTON (PCP) Patient Instructions: Headache, FAQs, Migraine Headache Additional Instructions: You were seen for a headache. Your symptoms improved with an NSAID, steroids, and an anti-nausea medication and gentle fluid hydration. You should return to the ED if you develop worsening pain, vision change, numbness, tingling, weakness, vomiting, fever, neck pain, or any other new or concerning symptoms. You need to follow up with your primary care physician for further evaluation and treatment. HUGO CHEN DO Nov 17, 2020 09:20
[2020-11-17] MEDS: IV NORMAL SALINE 1,000ML 1,000 ML IV ONE (09:53)
[2020-11-17] MEDS: diphenhydrAMINE 50 MG/ML VIAL IVP ONE (09:55)
[2020-11-17] MEDS: PROCHLORPERAZINE 10 MG/2 ML VIAL. IV ONE (09:56)
[2020-11-17] MEDS: KETOROLAC 15 MG/ML VIAL. IVP ONE (09:58)
[2020-11-17] MEDS: DEXAMETHASONE SOD PHOS 10 MG/ML VIAL. IVP ONE (09:59)
[2020-11-17 11:23] VITALS: BP 135/61
== END 2020-11-17 11:23 | disposition home or self-care (01) ==
LOC: ER 08:44
DX: G43.909 Migraine, unspecified, not intractable, without status migrainosus (principal); H53.8 Other visual disturbances; F41.9 Anxiety disorder, unspecified; F32.9 Major depressive disorder, single episode, unspecified; E66.8 Other obesity; Z68.44 Body mass index [BMI] 60.0-69.9, adult; Z98.890 Other specified postprocedural states
CPT/HCPCS: 96361; 96374; 96375; 99284; J0780; J1100; J1200; J1885; J7030

== ENCOUNTER 2021-02-26 20:26 | Emergency (ER) | payer OTHER ==
[~2021-02-26] VITALS: Ht 170.2 cm; Wt 178.5 kg
--- NOTE | 2021-02-26 20:50 | PHYS DOC ---
Past History Past Medical History: Anxiety, Bipolar, Depression, Other Additional Past Medical Histor: obesity Past Surgical History: , Tonsillectomy Smoking: Non-smoker Alcohol Use: Occasionally Drug Use: None Adult General Chief Complaint Chief Complaint: HYPOGLYCEMIA HPI HPI Patient is a 30-year-old female with a past medical history significant for anxiety, depression and bipolar who presents with a chief complaint of generalized fatigue and fogginess. States he was doing well up until this morning. States she worked out and then shortly after felt a little lightheaded like her head was foggy. States she was not dizzy or felt like she was going to pass out just feels like she has generalized overall body fatigue and some foggy thinking. Denies any recent traumas, illnesses, fevers, headache, changes in vision Review of Systems Review of Systems Review of systems otherwise unremarkable except noted in HPI Allergies Allergies Allergies Coded Allergies Type Severity Reaction Last Updated Verified No Known Drug Allergies 01/23/20 No Physical Exam Physical Exam Constitutional: Well developed, well nourished, no acute distress, non-toxic appearance. [] HENT: Normocephalic, atraumatic, bilateral external ears normal, oropharynx moist, no oral exudates, nose normal. [] Eyes: PERRLA, EOMI, conjunctiva normal, no discharge. [] Neck: Normal range of motion, no tenderness, supple, no stridor. [] Cardiovascular:Heart rate regular rhythm, no murmur [] Lungs & Thorax: Bilateral breath sounds clear to auscultation [] Abdomen: soft, no tenderness, no masses, no pulsatile masses. [] Skin: Warm, dry, no erythema, no rash. [] Back: No tenderness, Extremities: No tenderness, ROM intact, no edema. [] Neurologic: Alert and oriented X 3, normal motor function, normal sensory function, able to sit, stand and walk without issue, no focal deficits noted. [] Psychologic: Affect normal, judgement normal, mood normal. [] Current Patient Data Lab Results Laboratory Tests Test 02/26/21 20:40 Glucose (Fingerstick) 90 mg/dL (70-99) EKG EKG Rate of 66, QRS of 90, QTc 423, no STEMI [] Radiology/Procedures Radiology/Procedures [] Heart Score C/O Chest Pain: No Risk Factors: Risk Factors: DM, Current or recent (<one month) smoker, HTN, HLP, family history of CAD, obesity. Risk Scores: Risk Factors: DM, Current or recent (<one month) smoker, HTN, HLP, family history of CAD, obesity. Course & Med Decision Making Course & Med Decision Making Patient is a 30-year-old female who presents with generalized fatigue Vital signs not concerning. Physical exam noted above. Patient denies need for pain or nausea medicine at this time. EKG noted above and normal. Laboratory analysis not concerning. Urinalysis not concerning. Negative . Discussed all findings with patient who stated she did not really think she was having an emergency she just felt fatigued and wanted to check her potassium as it has been low in the past. Discussed with patient her potassium is 3.4 and the low cutoff is 3.5 and could be treated home with nutritionally or with supplements. Advised to call primary care physician in the morning to update on ED visit and set up a follow-up. Gave return precautions to the ED. Patient grateful, verbalized understanding and agreed with plan of discharge. [] Dragon Disclaimer Dragon Disclaimer This electronic medical record was generated, in whole or in part, using a voice recognition dictation system. Departure Departure: Impression: Primary Impression: Fatigue Disposition: 01 HOME / SELF CARE / HOMELESS Condition: GOOD Referrals: KAROLINE THORNTON (PCP) Patient Instructions: Fatigue Additional Instructions: Thank you for coming into the emergency department tonight and allowing us to take care of you. As discussed, all of your laboratory studies including urine were reassuring. Your potassium was at 3.4 and be cut off that we have here in the emergency department is 3.5 so it is a little low but there is no need for hospitalization for this as you can treated at home nutritionally or with supple ments as discussed. Please call your primary care physician first thing in the morning to update on ED visit and set up a follow-up appointment. Please come back to the emergency department immediately with new or concerning symptoms as discussed. STEWART PATRICIA MD Feb 26, 2021 20:50
[2021-02-26 21:05] LABS: BACTERIA,URINE 0 /HPF (0-FEW); BILIRUBIN,URINE NEG (NEG); CLARITY,URINE CLEAR; COLOR,URINE YELLOW; GLUCOSE,URINE NEG (NEG); NITRITE,URINE NEG (NEG); RBC,URINE 0 /HPF (0-2); UROBILINOGEN,URINE 0.2 mg/dL (0.2 mg/dL); WBC,URINE 0 /HPF (0-4)
[2021-02-26 21:06] LABS: SQUAMOUS EPITHELIAL CELL,UR OCC /LPF
--- NOTE | 2021-02-26 21:36 | EKG ---
[address] [address] Test Date: 2021-02-26 Test Time: 20:56:51 Pat Name: DOUG REES Department: Room: Gender: F Phone Technician: : 1990 Requested By: STEWART PATRICIA Order Number: [id number] Reading MD: Measurements Intervals [place] Rate: 66 P: 32 RI: 176 QRS: -7 QRSD: 90 T: 0 QT: 402 QTc: 423 Interpretive Statements SINUS RHYTHM LEFTWARD AXIS NO SPECIFIC ECG ABNORMALITIES RI6.02 No previous ECG available for comparison
[2021-02-26 21:54] LABS: BASO # 0.1 x10^3/uL (0.0-0.2); BASO % 1 % (0-3); EOS # 0.1 x10^3/uL (0.0-0.7); EOS % 1 % (0-3); HEMATOCRIT 37.2 % (36.0-47.0); HEMOGLOBIN 12.2 g/dL (12.0-15.5); LYMPH # 2.3 x10^3/uL (1.0-4.8); LYMPH % 28 % (24-48); MEAN CORPUSCULAR HEMOGLOBIN 27 pg (25-35); MEAN CORPUSCULAR HGB CONC 33 g/dL (31-37); MEAN CORPUSCULAR VOLUME 81 fL (79-100); MONO # 0.5 x10^3/uL (0.0-1.1); MONO % 6 % (0-9); NEUT # 5.2 x10^3uL (1.8-7.7); NEUT % 64 % (31-73); PLATELET COUNT 223 x10^3/uL (140-400); RED BLOOD COUNT 4.61 x10^6/uL (3.50-5.40); RED CELL DISTRIBUTION WIDTH 15.2 % (11.5-14.5); WHITE BLOOD COUNT 8.2 x10^3/uL (4.0-11.0)
[2021-02-26 22:08] LABS: CALCIUM 8.5 mg/dL (8.5-10.1); CREATININE 0.8 mg/dL (0.6-1.0); GFR 85.4; POTASSIUM 3.4 mmol/L (3.5-5.1)
[2021-02-26 22:45] VITALS: BP 147/84
== END 2021-02-26 22:50 | disposition home or self-care (01) ==
LOC: ER 20:26
DX: R53.83 Other fatigue (principal); R42 Dizziness and giddiness; F41.9 Anxiety disorder, unspecified; F31.9 Bipolar disorder, unspecified; E66.9 Obesity, unspecified; Z68.44 Body mass index [BMI] 60.0-69.9, adult
CPT/HCPCS: 36415; 80048; 81001; 81025; 82947; 85025; 93005; 99284

== ENCOUNTER 2021-04-22 15:11 | Emergency (ER) | payer OTHER ==
[~2021-04-22] VITALS: Ht 170.2 cm; Wt 156.1 kg
--- NOTE | 2021-04-22 16:03 | PHYS DOC ---
Past History Past Medical History: Anxiety, Bipolar, Depression, Other Additional Past Medical Histor: obesity; chronic low potassium (MEGHA FREY APRN) Past Surgical History: , Tonsillectomy, Other Additional Past Surgical Histo: bariatric (MEGHA FREY APRN) Smoking: Non-smoker Alcohol Use: None Drug Use: None (MEGHA FREY APRN) General Adult EDM: Chief Complaint: DIZZY/LIGHT HEADED HPI: HPI: Patient is a 30-year-old female who presents to the ER with dizziness and nausea. Patient was at the grocery store when she felt off balance and her assisted her to the floor. Patient did not fall, hit head, or lose consciousness. Patient states that she feels shaky. She reports that she feels like her extremities are heavy. She is having twitching with purposeful movements. Patient denies vision changes, headache, vomiting, unilateral weakness, chest pain, shortness of breath. Patient has a history of hypokalemia and takes his potassium supplement. Patient is noted to be hypertensive in the ER but she does not take any medications and have been diagnosed with hypertension. Patient started Depakote and Abilify approximately 2 months ago. (MEGHA FREY APRN) Review of Systems: Review of Systems: 14 body systems of the review of systems have been reviewed. See HPI for pertinent positive and negative responses, otherwise all other systems are negative, nonpertinent or noncontributory (MEGHA FREY APRN) Allergies: Allergies: Allergies Coded Allergies Type Severity Reaction Last Updated Verified No Known Drug Allergies 04/22/21 No (MEGHA FREY APRN) Physical Exam: PE: Constitutional: Well developed, well nourished, no acute distress, non-toxic appearance. [] HENT: Normocephalic, atraumatic, bilateral external ears normal, oropharynx moist, no oral exudates, nose normal. [] Eyes: PERRLA, 4 mm bilateral, EOMI, photophobia, conjunctiva normal, no di scharge. [] Neck: Normal range of motion, no tenderness, supple, no stridor. [] Cardiovascular:Heart rate regular rhythm, no murmur [] Lungs & Thorax: Bilateral breath sounds clear to auscultation [] Abdomen: Bowel sounds normal, soft, no tenderness, no masses, no pulsatile masses. [] Skin: Warm, dry, no erythema, no rash. [] Back: No tenderness, no CVA tenderness. [] Extremities: No tenderness, no cyanosis, no clubbing, ROM intact, no edema. [] Neurologic: Alert and oriented X 3, normal motor function, normal sensory function, no focal deficits noted, patient has twitching with purposeful movements of bilateral upper and lower extremities, equal strength of upper and lower extremities, equal movements of upper and lower extremities, normal speech Psychologic: Affect normal, judgement normal, mood normal. [] (MEGHA FREY APRN) Current Patient Data: Labs: Laboratory Tests Test 04/22/21 15:38 Glucose (Fingerstick) 101 mg/dL (70-99) H Vital Signs: Vital Signs Date Time Temp Pulse Resp B/P (MAP) Pulse Ox O2 Delivery O2 Flow Rate FiO2 04/22/21 15:23 98.8 63 27 175/103 97 Room Air (MEGHA FREY APRN) EKG: EKG: EKG performed by ER staff at 1526 shows sinus rhythm, no STEMI read by Dr. Kent at 1532. [] (MEGHA FREY APRN) Radiology/Procedures: Radiology/Procedures: PROCEDURE: CT HEAD WO CONTRAST CT HEAD/BRAIN WO Date: 04/22/2021 4:00 PM Clinical Indication: Reason: weakness, near syncope / Spl. Instructions: / History: Comparison: 02/18/2018. Technique: 5 mm axial tomographic images were obtained of the head without contrast. These were viewed on brain and bone windows. One or more of the following dose reduction techniques were utilized: Automated exposure control (AEC), Adjustment of mA and/or kV according to patient size, Use of iterative reconstruction technique such as ASiR, CT scan done according to ALARA and image gently/image wisely Findings: The brain parenchyma is normal in attenuation. No intra- or extra-axial mass or fluid collection. No acute hemorrhage. The ventricles are normal in size, shape, and morphology. The sullivan-white matter junction is normal. The subarachnoid cisterns are patent. The visualized paranasal sinuses are normal. The visualized portions of the orbits and globes are normal. The mastoid air cells are clear. The search engineer topogram shows no lytic lesion or fracture. Impression: No acute intracranial process. Electronically signed by: Beltran Vivas MD (04/22/2021 4:18 PM) [facility] DICTATED AND SIGNED BY: BELTRAN VIVAS MD DATE: 04/22/21 161 CC: EMERGENCY,DEPARTMENT; MEGHA FREY APRN; KAROLINE THORNTON ~MTH0 0 [] (MEGHA FREY APRN) Heart Score: C/O Chest Pain: No Risk Factors: Risk Factors: DM, Current or recent (<one month) smoker, HTN, HLP, family history of CAD, obesity. Risk Scores: Score 0 - 3: 2.5% MACE over next 6 weeks - Discharge Home Score 4 - 6: 20.3% MACE over next 6 weeks - Admit for Clinical Observation Score 7 - 10: 72.7% MACE over next 6 weeks - Early Invasive Strategies (MEGHA FREY APRN) Course & Med Decision Making: Course & Med Decision Making Pertinent Labs and Imaging studies reviewed. (See chart for details) Patient is a 30-year-old female who presents to the ER for feeling off balance with nausea. Work-up in the ER consisted of blood work, urinalysis, EKG, CT scan of head. Work-up in ER is unremarkable. Patient is noted to continue have elevated blood pressure readings. Patient given 12.5 mg of hydrochlorothiazide. She will be discharged home with a prescription for hydrochlorothiazide and will be educated on hypertension and will the need to follow-up with her primary care provider. I discussed with patient all findings and diagnostic testing as well as the need to follow-up with PCP for further evaluation and treatment or return to the ER if any new or worsening symptoms. Strict return precautions were also discussed at length. Patient voiced understanding and agreement with the plan. Patient is hemodynamically stable at the time of disposition. (MEGHA FREY APRN) Course & Med Decision Making I was the Attending physician on the above date of service of this patient. This patient was evaluated, examined, treated, and dispositioned from the emergency department by the mid-level practitioner. Electronically signed, Hugo Chen DO (HUGO CHEN DO) Romina Disclaimer: Romina Disclaimer: This electronic medical record was generated, in whole or in part, using a voice recognition dictation system. (KT,MEGHA L PUMP SERVICER HELPER) Departure Departure: Impression: Primary Impression: Hypertension Qualified Codes: I10 - Essential (primary) hypertension Disposition: 01 HOME / SELF CARE / HOMELESS Condition: GOOD Referrals: KAROLINE THORNTON (PCP) Patient Instructions: Hypertension Additional Instructions: You were seen in the ER for dizziness and nausea. Your work-up in the ER was unremarkable. You were noted to have elevated blood pressure readings while in the ER. It is likely that that is the cause of your symptoms. You were given a dose of hydrochlorothiazide for your blood pressure in the ER. You will be discharged home with a prescription for hydrochlorothiazide. Please take this as directed. You need to follow-up with your primary care provider tomorrow regarding your ER visit. The treatment of hypertension requires frequent monitoring and possibly dose adjustments which is why it is imperative for you to follow-up with your primary care provider. If you develop lightheadedness, syncope, intractable nausea/vomiting, slurred speech, unilateral weakness, chest pain, shortness of breath or any new or worsening concerns please return to the ER immediately. EMERGENCY DEPARTMENT GENERAL DISCHARGE INSTRUCTIONS Thank you for coming to [facility] (ED) today and trusting us with you care. We trust that you had a positivie experience in our Emergency Department. If you wish to speak to the department management, you may call the director at [phone]. YOUR FOLLOW UP INSTRUCTIONS ARE FOLLOWS: 1. Do you have a private Doctor? If you do not have a private doctor, please ask for a resource list of physicians or clinics that may be able to assist you with follow up care. 2. The Emergency Physician has interpreted your x-rays. The X-Ray specialist will also review them. If there is a change in the findings, you will be notified in 48 hours when at all possible. 3. A lab test or culture has been done, your results will be reviewed and you will be notified if you need a change in treatment. ADDITIONAL INSTRUCTIONS AND INFORMATION: 1. Your care today has been supervised by a physician who is specially trained in emergency care. Many problems require more than one evaluation for a complete diagnosis and treatment. We recommend that you schedule your follow up appointment as recommended to ensure complete treatment of you illness or injury. If you are unable to obtain follow up care and continue to have a problem, or if your condition worsens, we recommend that you return to the ED. 2. We are not able to safely determine your condition over the phone nor are we able to give sound medical advice over the phone. For these safety reasons, if you call for medical advice we will ask you to come to the ED for further evaluation. 3. If you have any questions regarding these discharge instructions please call the ED at [phone]. SAFETY INFORMATION: In the interest of safety, wellness, and injury prevention; we encourage you to wear your sealbelt, if you smoke; quite smoking, and we encourage family to use a protective helmet for bicycling and other sporting events that present an increased risk for head injury. IF YOUR SYMPTOMS WORSEN OR NEW SYMPTOMS DEVELOP, OR YOU HAVE CONCERNS ABOUT YOUR CONDITION; OR IF YOUR CONDITION WORSENS WHILE YOU ARE WAITING FOR YOUR FOLLOW UP APPOINTMENT; EITHER CONTACT YOUR PRIMARY CARE DOCTOR, THE PHYSICIAN WHOSE NAME AND NUMBER YOU WERE GIVEN, OR RETURN TO THE ED IMMEDIATELY. Scripts Hydrochlorothiazide (HYDROCHLOROTHIAZIDE TABLET) 12.5 Mg Tablet 12.5 MG PO DAILY for hypertension for 30 Days, #30 TAB 0 Refills Prov: MEGHA FREY APRN 04/22/21 MEGHA FREY APRN Apr 22, 2021 16:03 HUGO CHEN DO Apr 23, 2021 08:20
[2021-04-22 16:05] LABS: BASO % 0 % (0-3); EOS # 0.2 x10^3/uL (0.0-0.7); EOS % 2 % (0-3); HEMATOCRIT 37.6 % (36.0-47.0); HEMOGLOBIN 12.4 g/dL (12.0-15.5); LYMPH # 1.9 x10^3/uL (1.0-4.8); LYMPH % 25 % (24-48); MEAN CORPUSCULAR HEMOGLOBIN 27 pg (25-35); MEAN CORPUSCULAR HGB CONC 33 g/dL (31-37); MEAN CORPUSCULAR VOLUME 82 fL (79-100); MONO # 0.5 x10^3/uL (0.0-1.1); MONO % 7 % (0-9); NEUT # 4.8 x10^3uL (1.8-7.7); NEUT % 65 % (31-73); PLATELET COUNT 193 x10^3/uL (140-400); RED CELL DISTRIBUTION WIDTH 15.8 % (11.5-14.5); WHITE BLOOD COUNT 7.4 x10^3/uL (4.0-11.0)
[2021-04-22 16:10] LABS: CALCIUM 8.1 mg/dL (8.5-10.1); CREATININE 0.7 mg/dL (0.6-1.0); GFR 99.6; POTASSIUM 3.6 mmol/L (3.5-5.1)
[2021-04-22 16:16] LABS: ALBUMIN 3.1 g/dL (3.4-5.0); TOTAL BILIRUBIN 0.3 mg/dL (0.2-1.0); TOTAL PROTEIN 6.2 g/dL (6.4-8.2)
--- NOTE | 2021-04-22 16:20 | RAD ---
CT HEAD/BRAIN WO Date: 04/22/2021 4:00 PM Clinical Indication: Reason: weakness, near syncope / Spl. Instructions: / History: Comparison: 02/18/2018. Technique: 5 mm axial tomographic images were obtained of the head without contrast. These were view ed on brain and bone windows. One or more of the following dose reduction techniques were utilized: A utomated exposure control (AEC), Adjustment of mA and/or kV according to patient size, Use of iterati ve reconstruction technique such as ASiR, CT scan done according to ALARA and image gently/image oscar ly Findings: The brain parenchyma is normal in attenuation. No intra- or extra-axial mass or fluid collection. No acute hemorrhage. The ventricles are normal in size, shape, and morphology. The sullivan-white matter steph ction is normal. The subarachnoid cisterns are patent. The visualized paranasal sinuses are normal. The visualized portions of the orbits and globes are no rmal. The mastoid air cells are clear. The meter inspector topogram shows no lytic lesion or fracture. Impression: No acute intracranial process. Electronically signed by: Cristo Vivas MD (04/22/2021 4:18 PM) [facility]
--- NOTE | 2021-04-22 16:37 | EKG ---
[address] [address] Test Date: 2021-04-22 Test Time: 15:26:46 Pat Name: DOUG REES Department: Room: Gender: F Glue Mixer: DEJA : 1990 Requested By: MEGHA FREY Order Number: [id number] Reading MD: Measurements Intervals [place] Rate: 62 P: 25 [place]: 182 QRS: -11 QRSD: 80 T: -7 QT: 386 QTc: 394 Interpretive Statements SINUS RHYTHM LEFTWARD AXIS QRS(T) CONTOUR ABNORMALITY CONSIDER INFERIOR INFARCT POSSIBLY ABNORMAL ECG RI6.02 No previous ECG available for comparison
[2021-04-22] MEDS ORDERED: hydroCHLOROthiazide 25 MG TABLET. PO ONE (17:15)
[2021-04-22] MEDS ORDERED: HYDR12.58 PO (18:39)
[2021-04-22 18:40] VITALS: BP 175/115
[2021-04-22 19:51] LABS: BILIRUBIN,URINE NEG (NEG); CLARITY,URINE CLEAR; COLOR,URINE YELLOW; GLUCOSE,URINE NEG (NEG)
[2021-04-22 19:52] LABS: BACTERIA,URINE FEW /HPF (0-FEW); NITRITE,URINE NEG (NEG); RBC,URINE 0 /HPF (0-2); SQUAMOUS EPITHELIAL CELL,UR MOD /LPF
== END 2021-04-22 18:42 | disposition home or self-care (01) ==
LOC: ER 15:11
DX: I10 Essential (primary) hypertension (principal); R42 Dizziness and giddiness; R55 Syncope and collapse
CPT/HCPCS: 36415; 70450; 80053; 81001; 81025; 82947; 85025; 93005; 99285-25

== ENCOUNTER → 2021-09-04 | Outpatient (CLI) | payer OTHER ==
[~2021-09-04] MED LIST changes: +HYDR12.58 PO
[2021-09-04 11:08] LABS: BASO % 1 % (0-3); EOS # 0.1 x10^3/uL (0.0-0.7); EOS % 2 % (0-3); HEMATOCRIT 39.6 % (36.0-47.0); HEMOGLOBIN 13.3 g/dL (12.0-15.5); LYMPH # 2.2 x10^3/uL (1.0-4.8); LYMPH % 35 % (24-48); MEAN CORPUSCULAR HEMOGLOBIN 28 pg (25-35); MEAN CORPUSCULAR HGB CONC 34 g/dL (31-37); MEAN CORPUSCULAR VOLUME 84 fL (79-100); MONO # 0.4 x10^3/uL (0.0-1.1); MONO % 6 % (0-9); NEUT # 3.6 x10^3uL (1.8-7.7); NEUT % 57 % (31-73); PLATELET COUNT 226 x10^3/uL (140-400); RED BLOOD COUNT 4.71 x10^6/uL (3.50-5.40); RED CELL DISTRIBUTION WIDTH 14.9 % (11.5-14.5); WHITE BLOOD COUNT 6.3 x10^3/uL (4.0-11.0)
[2021-09-04 11:30] LABS: ALBUMIN 3.5 g/dL (3.4-5.0); ALBUMIN/GLOBULIN RATIO 1.3 (1.0-1.7); ALK PHOS 145 U/L (46-116); ALT (SGPT) 25 U/L (14-59); ANION GAP 9 (6-14); AST (SGOT) 12 U/L (15-37); BLOOD UREA NITROGEN 12 mg/dL (7-20); BUN/CREATININE RATIO 17 (6-20); CALCIUM 8.5 mg/dL (8.5-10.1); CARBON DIOXIDE 27 mmol/L (21-32); CHLORIDE 107 mmol/L (98-107); CREATININE 0.7 mg/dL (0.6-1.0); GFR 98.9; GLUCOSE 86 mg/dL (70-99); POTASSIUM 4.2 mmol/L (3.5-5.1); SODIUM 143 mmol/L (136-145); TOTAL BILIRUBIN 0.4 mg/dL (0.2-1.0); TOTAL PROTEIN 6.3 g/dL (6.4-8.2)
[2021-09-04 11:31] LABS: VAL ACID 49 mcg/mL (50-100)
== END ==
LOC: LAB 09:15
PROVIDERS: ATTEND Psychiatry & Neurology Psychiatry
DX: Z79.899 Other long term (current) drug therapy (principal)
CPT/HCPCS: 36415; 80053; 80164; 84443; 85025

== ENCOUNTER → 2021-09-04 | Outpatient (CLI) | payer OTHER ==
[2021-09-04 14:40] LABS: FREE T4 0.9 ng/dL (0.76-1.46); THYROID STIM HORMONE (TSH) 2.502 uIU/mL (0.358-3.740)
[2021-09-04 22:09] LABS: DHEA SO4 40.1 ug/dL (84.8-378.0); FSH 5.8 mIU/mL (.); LUTEINIZING HORMONE 7.4 mIU/mL (.); TESTOSTERONE TOTAL 11 ng/dL (13-71)
== END ==
LOC: LAB 09:21
PROVIDERS: ATTEND Physician Assistant
DX: L65.9 Nonscarring hair loss, unspecified (principal)
CPT/HCPCS: 36415; 82627; 82728; 83001; 83002; 84403; 84439; 84443; 86592

== ENCOUNTER → 2021-09-16 | Outpatient (CLI) | payer OTHER ==
[2021-09-16 11:16] LABS: BASO % 1 % (0-3); EOS # 0.1 x10^3/uL (0.0-0.7); EOS % 2 % (0-3); HEMATOCRIT 38.3 % (36.0-47.0); HEMOGLOBIN 12.5 g/dL (12.0-15.5); LYMPH % 33 % (24-48); MEAN CORPUSCULAR HEMOGLOBIN 28 pg (25-35); MEAN CORPUSCULAR HGB CONC 33 g/dL (31-37); MEAN CORPUSCULAR VOLUME 86 fL (79-100); MONO # 0.3 x10^3/uL (0.0-1.1); MONO % 5 % (0-9); NEUT # 3.5 x10^3uL (1.8-7.7); NEUT % 59 % (31-73); PLATELET COUNT 186 x10^3/uL (140-400); RED BLOOD COUNT 4.48 x10^6/uL (3.50-5.40); RED CELL DISTRIBUTION WIDTH 15.3 % (11.5-14.5)
[2021-09-16 11:22] LABS: ALBUMIN 3.4 g/dL (3.4-5.0); ALBUMIN/GLOBULIN RATIO 1.3 (1.0-1.7); CALCIUM 8.1 mg/dL (8.5-10.1); CREATININE 0.7 mg/dL (0.6-1.0); GFR 98.9; MAGNESIUM 2.3 mg/dL (1.8-2.4); POTASSIUM 3.7 mmol/L (3.5-5.1); TOTAL BILIRUBIN 0.3 mg/dL (0.2-1.0)
[2021-09-17 02:07] LABS: HEMOGLOBIN A1C 4.8 % (4.8-5.6)
[2021-09-17 14:13] LABS: CALCIUM PTH 8.7 mg/dL (8.7-10.2); CREATININE PTH 0.65 mg/dL (0.57-1.00); PTH INTACT 129 pg/mL (15-65)
[2021-09-23 18:07] LABS: VITAMIN E(ALPHA TOCOPHEROL) 7.3 mg/L (5.9-19.4); VITAMIN E(GAMMA TOCOPHEROL) 0.6 mg/L (0.7-4.9)
== END ==
LOC: LAB 08:47
PROVIDERS: ATTEND Surgery
DX: K91.2 Postsurgical malabsorption, not elsewhere classified (principal)
CPT/HCPCS: 36415; 80053; 80061; 82306; 82607; 83036; 83540; 83550; 83735; 83970; 84425; 84446; 84590; 84597; 84630; 85025

== ENCOUNTER → 2021-09-30 | Outpatient (CLI) | payer OTHER | LOC: LAB 18:22 | PROVIDERS: ATTEND Internal Medicine Cardiovascular Disease | DX: R50.9 Fever, unspecified (principal); R51.9 Headache, unspecified; J02.9 Acute pharyngitis, unspecified; R68.89 Other general symptoms and signs; R11.2 Nausea with vomiting, unspecified; R09.81 Nasal congestion; R53.81 Other malaise; M79.10 Myalgia, unspecified site; Z20.822 Contact with and (suspected) exposure to COVID-19 | CPT/HCPCS: U0003 ==

== ENCOUNTER → 2021-12-17 | Outpatient (CLI) | payer OTHER ==
[2021-12-17 09:26] LABS: ALBUMIN 3.1 g/dL (3.4-5.0); CALCIUM 8.5 mg/dL (8.5-10.1); CREATININE 0.7 mg/dL (0.6-1.0); GFR 98.9; POTASSIUM 3.7 mmol/L (3.5-5.1); TOTAL BILIRUBIN 0.5 mg/dL (0.2-1.0); TOTAL PROTEIN 6.1 g/dL (6.4-8.2)
== END ==
LOC: LAB 08:02
PROVIDERS: ATTEND Family Medicine
DX: Z79.899 Other long term (current) drug therapy (principal)
CPT/HCPCS: 36415; 80053; 80178

== ENCOUNTER → 2022-01-04 | Outpatient (CLI) | payer OTHER ==
[2022-01-04 10:09] LABS: BASO % 0 % (0-3); EOS # 0.1 x10^3/uL (0.0-0.7); EOS % 2 % (0-3); HEMATOCRIT 40.5 % (36.0-47.0); HEMOGLOBIN 13.4 g/dL (12.0-15.5); LYMPH # 2.1 x10^3/uL (1.0-4.8); LYMPH % 36 % (24-48); MEAN CORPUSCULAR HEMOGLOBIN 29 pg (25-35); MEAN CORPUSCULAR HGB CONC 33 g/dL (31-37); MEAN CORPUSCULAR VOLUME 87 fL (79-100); MONO # 0.3 x10^3/uL (0.0-1.1); MONO % 6 % (0-9); NEUT # 3.3 x10^3uL (1.8-7.7); NEUT % 56 % (31-73); PLATELET COUNT 159 x10^3/uL (140-400); RED BLOOD COUNT 4.63 x10^6/uL (3.50-5.40); RED CELL DISTRIBUTION WIDTH 14.2 % (11.5-14.5); WHITE BLOOD COUNT 5.9 x10^3/uL (4.0-11.0)
[2022-01-04 10:19] LABS: ALBUMIN 3.1 g/dL (3.4-5.0); ALBUMIN/GLOBULIN RATIO 1.1 (1.0-1.7); CALCIUM 8.3 mg/dL (8.5-10.1); CREATININE 0.7 mg/dL (0.6-1.0); GFR 98.9; MAGNESIUM 2.3 mg/dL (1.8-2.4); TOTAL BILIRUBIN 0.4 mg/dL (0.2-1.0); TOTAL PROTEIN 5.9 g/dL (6.4-8.2)
[2022-01-04 14:50] LABS: CHOLESTEROL/HDL RATIO 3.5
[2022-01-05 06:10] LABS: HEMOGLOBIN A1C 4.7 % (4.8-5.6)
[2022-01-06 13:10] LABS: CALCIUM PTH 8.9 mg/dL (8.7-10.2); CREATININE PTH 0.65 mg/dL (0.57-1.00); PTH INTACT 116 pg/mL (15-65)
== END ==
LOC: LAB 08:53
PROVIDERS: ATTEND Surgery
DX: K91.2 Postsurgical malabsorption, not elsewhere classified (principal); Z90.3 Acquired absence of stomach [part of]
CPT/HCPCS: 36415; 80053; 80061; 82306; 82607; 83036; 83540; 83550; 83735; 83970; 84425; 84446; 84590; 84597; 84630; 85025